=== PATIENT | female | born 1980 | race Caucasian/White ===

== ENCOUNTER 2017-09-03 06:22 | Inpatient (IN) | payer BC ==
--- NOTE | 2017-09-03 07:57 | HP ---
General Information - General Information Maternal Age: 37 Grav: 1 Para: 0 SAB: 0 IEA: 0 Estimated Due Date: 09/03/17 Determined By: LMP Gestational Age in Weeks and Days: 40 Weeks and 0 Days Maternal Blood Type and Rh: A Positive - Results this Serology/RPR Result: Non-Reactive Rubella Result: Immune HBsAg Result: Negative HIV Result: Negative GBS Culture Result: Negative Past Medical History Delivery History: See Records Pertinent Past Medical History: See Records Past Medical History Comment: hemochromotosis Pertinent Past Surgical History: None Pertinent Family History: See Records Family History Comment: DM, HTN, blood clots, CVD, lung cancer - Antepartal Records Antepartal Records: Reviewed, Complicated by: - diet controlled GDM, AMA, L hydronephrosis, hemochromotosis, varicella non immune Review of Systems Constitutional: Uncomfortable CV Complaint: No Respiratory: Shortness of Breath: No Gastrointestinal: No Nausea/Vomiting Genitourinary: No Dysuria, No Bleeding, No Leaking Fluid Musculoskeletal: Back Pain, Contractions Neurological: No Headache Movement: Normal Exam Allergies/Adverse Reactions: Allergies No Known Allergies Allergy (Verified 09/03/17 06:52) T:97.5, P:79, R:20, BP: 137/90 - Measurements Height: 5 ft 6 in Weight: 180 lb Weight in lbs: 180 Body Mass Index (BMI): 29.0 Pre- Weight: 160 lb Weight Gained This : 20 lbs and 0 ozs - Exam Abdomen: No Upper Quadrant Pain Breast: Breast Exam Deferred CVA: No CVA Tenderness Extremities: No Edema Heart: Normal Rhythm/Heart Sounds HEENT: No Significant Findings Lungs: Clear Bilaterally Rectal: Rectal Exam Deferred Targeted Exam Findings See L&D Outpatient Visit Provider Note for Findings: N/A Presenting Part: Vertex Membrane Status: Intact Bleeding/Discharge: Bloody Show EFM Findings - External Monitor Findings Baseline Heart Rate: 145 External Monitor Findings: No Pattern of Variable or Late Decelerations, Variability Moderate, Baseline Stable Contractions: Regular, 45-90 Seconds Contraction Frequency: 2-3 Assessment/Plan - Reason for Visit Reason for Visit: labor, full term - Plan Plan: Active Labor - Date/Time of Admission Date of Admission: 09/03/17 Time of Admission: 07:00
[2017-09-03] MEDS ORDERED: Witch Hazel PAD* JAR TOPICAL PRN (10:59)
[2017-09-03] MEDS ORDERED: Dibucaine 1% 28.35 GM TUBE PR PRN (10:59)
[2017-09-03] MEDS ORDERED: Glycerin ADULT SUPP PR PRN (10:59)
[2017-09-03] MEDS ORDERED: OXYTOCIN* 10 UNITS/ML 1 ML VIAL IM ONE (10:59)
[2017-09-03] MEDS: Ibuprofen TAB* 600 MG PO PRN ×3 (11:50→23:58)
[2017-09-03] MEDS ORDERED: Simethicone TAB* 80 MG TAB.CHEW PO SCH (12:30)
[2017-09-03] MEDS ORDERED: Varicella Virus Vaccine Live* 0.5 ML VIAL SUBCUT ONE (15:00)
[2017-09-03] MEDS: Docusate CAP* 100 MG PO SCH ×2 (17:28→20:41)
[2017-09-03] MEDS: Acetaminophen TAB* 325 MG PO PRN (20:46)
[2017-09-04 06:28] LABS: ABS Basophils 0.1 10^3/ul (0-0.2); ABS Eosinophils 0.2 10^3/ul (0-0.6); ABS Lymphocytes 2.1 10^3/ul (1.0-4.8); ABS Monocytes 0.5 10^3/ul (0-0.8); ABS Neutrophils 7.7 10^3/ul (1.5-7.7); ABS Nucleated RBC 0 10^3/ul; Eosinophil % 1.9 % (0-6); Hematocrit 34 % (35-47); Hemoglobin 11.8 g/dl (12.0-16.0); Lymphocyte % 19.9 % (25-47); Mean Corpuscular HGB Conc 35 g/dl (31-36); Mean Corpuscular Hemoglobin 31 pg (27-31); Mean Corpuscular Volume 89 fL (80-97); Nucleated Red Blood Cells % 0.1; Platelet Count 162 10^3/ul (150-450); Red Blood Count 3.84 10^6/ul (4.0-5.4); Red Cell Distribution Width 14 % (10.5-15); White Blood Count 10.6 10^3/ul (3.5-10.8)
[2017-09-04] MEDS: Ibuprofen TAB* 600 MG PO PRN ×2 (08:31→17:15)
[2017-09-04] MEDS: Docusate CAP* 100 MG PO SCH ×3 (08:31→21:04)
[2017-09-04] MEDS ORDERED: Ferrous Gluconate TAB* 324 MG TAB PO SCH (09:00)
[2017-09-04] MEDS: Acetaminophen TAB* 325 MG PO PRN ×2 (13:35→21:06)
[2017-09-05 08:10] VITALS: BP 138/83
[2017-09-05] MEDS: Ibuprofen TAB* 600 MG PO PRN (09:40)
[2017-09-05] MEDS: Docusate CAP* 100 MG PO SCH (09:40)
== END 2017-09-05 12:51 | disposition home or self-care (01) | DRG 560 ==
LOC: MCHOBOUT 06:22 → MCHOB 07:52
PROVIDERS: ADMIT Midwife; ATTEND Midwife
PROC: 10E0XZZ Delivery of Products of Conception, External Approach (ICD-10-PCS; principal; 2017-09-05)
PROC: 4A1HX4Z Monitoring of Products of Conception, Cardiac Electrical Activity, External Approach (ICD-10-PCS; 2017-09-05)
PROC: 0KQM0ZZ Repair Perineum Muscle, Open Approach (ICD-10-PCS; 2017-09-05)
PROC: 0UQMXZZ Repair Vulva, External Approach (ICD-10-PCS; 2017-09-05)
DX: O48.0 Post-term pregnancy (principal); N13.30 Unspecified hydronephrosis; O99.89 Other specified diseases and conditions complicating pregnancy, childbirth and the puerperium; O24.420 Gestational diabetes mellitus in childbirth, diet controlled; E83.119 Hemochromatosis, unspecified; Z3A.40 40 weeks gestation of pregnancy; Z37.0 Single live birth; O77.0 Labor and delivery complicated by meconium in amniotic fluid; O70.1 Second degree perineal laceration during delivery; O71.82 Other specified trauma to perineum and vulva
CPT/HCPCS: 36415; 85025; A9270-GY